=== PATIENT | male | born 1995 ===

== ENCOUNTER → 2018-11-06 19:38 | Outpatient (REF) | payer OTHER, SELFPAY ==
[2018-11-06 20:23] LABS: Free T3, Triiodothyronine Free 3.82 pg/mL (2.77-5.27); Free T4, Direct Thyroxine 1.04 ng/dL (0.78-2.19)
[2018-11-06 20:37] LABS: Thyroid Stimulating Hormone 0.76 uIU/mL (0.47-4.68)
== END ==
LOC: LAB 19:38
PROVIDERS: Visit Provider Family Medicine
DX: E07.9 Disorder of thyroid, unspecified (principal)
CPT/HCPCS: 36415; 84439; 84443; 84481